=== PATIENT | female | born 1945 | race Caucasian/White ===

== ENCOUNTER 2021-06-12 10:21 | Outpatient (CLI) | payer MEDICARE, OTHER ==
[2021-06-12 12:33] LABS: Hemoglobin 12.3 g/dL (12.0-15.5); Mean Corpuscular HGB CONC 32.5 g/dL (32.0-36.0); Mean Corpuscular Hemoglobin 28.6 pg (27.0-33.0); Mean Corpuscular Volume 87.9 fl (81.6-98.3); Mean Platelet Volume 9.9 fl (7.4-10.4); Platelet Count 195 10x3/uL (150-450); White Blood Cell (WBC) Count 5.8 10x3/uL (3.5-10.5)
[2021-06-12 12:58] LABS: Anion Gap 14 mmol/L (10-20); BUN (Urea Nitrogen) 27 mg/dL (9.8-20.1); Calc. Creatinine Clearance 0 mL/min (70-130); Calcium 8.9 mg/dL (7.8-10.44); Carbon Dioxide 25 mmol/L (23-31); Chloride 103 mmol/L (98-107); Glucose 117 mg/dL (83-110); Potassium 4.6 mmol/L (3.5-5.1); Sodium 137 mmol/L (136-145)
[2021-06-12 23:52] LABS: SARS-CoV-2 PCR by NAA Not Detected (NotDetected)
== END 2021-06-12 10:22 | disposition home or self-care (01) ==
LOC: CSHLAB 10:21
PROVIDERS: ATTEND Orthopaedic Surgery
DX: Z01.818 Encounter for other preprocedural examination (principal); Z20.822 Contact with and (suspected) exposure to COVID-19; M19.011 Primary osteoarthritis, right shoulder
CPT/HCPCS: 80048; 85027; 93005; 93010; U0003; U0005

== ENCOUNTER 2022-08-18 13:37 | Outpatient (CLI) | payer MEDICARE, OTHER ==
[2022-08-18 15:03] LABS: Hemoglobin 11.8 g/dL (12.0-15.5); Mean Corpuscular HGB CONC 32.6 g/dL (32.0-36.0); Mean Corpuscular Hemoglobin 28.5 pg (27.0-33.0); Mean Corpuscular Volume 87.4 fl (81.6-98.3); Mean Platelet Volume 9.9 fl (7.4-10.4); Platelet Count 204 10x3/uL (150-450); RBC Distribution Width 13.5 % (11.5-14.5); Red Blood Cell (RBC) Count 4.14 10x6/uL (3.90-5.03); White Blood Cell (WBC) Count 6.3 10x3/uL (3.5-10.5)
[2022-08-18 15:20] LABS: Anion Gap 15 mmol/L (10-20); BUN (Urea Nitrogen) 32 mg/dL (9.8-20.1); Calc. Creatinine Clearance 0 mL/min (70-130); Calcium 9.5 mg/dL (7.8-10.44); Carbon Dioxide 23 mmol/L (23-31); Chloride 106 mmol/L (98-107); Estimated GFR 56; Glucose 99 mg/dL (83-110); Sodium 139 mmol/L (136-145)
== END 2022-08-18 13:38 | disposition home or self-care (01) ==
LOC: CSHLAB 13:37
PROVIDERS: ATTEND Orthopaedic Surgery
DX: Z01.818 Encounter for other preprocedural examination (principal); S83.011A Lateral subluxation of right patella, initial encounter; S83.015A Lateral dislocation of left patella, initial encounter
CPT/HCPCS: 80048; 85027; 93005; 93010

== ENCOUNTER 2022-08-20 05:57 | Day surgery (SDC) | payer MEDICARE, OTHER ==
[2022-08-18 14:28] VITALS: BMI 35.2
[2022-08-20] MEDS ORDERED: Bupivacaine HCl 0.5%/Epinephrine 1:200,000/PF 30 ml Vial ONE (06:56)
[2022-08-20] MEDS ORDERED: Acetaminophen 500 MG TAB ONE (07:18)
[2022-08-20] MEDS ORDERED: Acetaminophen 325 MG TAB ONE (07:18)
[2022-08-20] MEDS ORDERED: Lidocaine 1% PF 5 ML VIAL ONE (07:29)
[2022-08-20] MEDS ORDERED: PROPOFOL 20 ML ONE (07:29)
[2022-08-20] MEDS ORDERED: Fentanyl 100 MCG/2 ML VIAL ONE (07:29)
[2022-08-20] MEDS ORDERED: CEFAZOLIN 2 GM VIAL ONE (07:37)
[2022-08-20] MEDS ORDERED: Dexamethasone 20 MG/5 ML VIAL ONE (07:51)
[2022-08-20] MEDS ORDERED: ePHEDrine Sulfate 50 MG/10 ML VIAL ONE (08:14)
[2022-08-20] MEDS ORDERED: Ondansetron PF 4 MG/2 ML Vial ONE (08:44)
[2022-08-20] MEDS ORDERED: [UNRECOGNIZED DRUG - REMARK] PO PRN (09:28)
[2022-08-20] MEDS ORDERED: oxyCODONE 5 MG TAB PO PRN (09:30)
[2022-08-20] MEDS ORDERED: Promethazine HCl 25 MG/ML VIAL IM/IV PRN (09:30)
[2022-08-20] MEDS ORDERED: Ondansetron HCl/PF 4 MG/2 ML Vial IVP PRN (09:30)
[2022-08-20] MEDS ORDERED: oxyCODONE 5 MG TAB ONE (09:56)
== END 2022-08-20 10:45 | disposition home or self-care (01) ==
LOC: CSHSDC 05:57
PROVIDERS: ATTEND Orthopaedic Surgery
PROC: 0MNN0ZZ Release Right Knee Bursa and Ligament, Open Approach (ICD-10-PCS; principal; 2022-08-20)
PROC: 0SBC0ZZ Excision of Right Knee Joint, Open Approach (ICD-10-PCS; 2022-08-20)
DX: S83.011A Lateral subluxation of right patella, initial encounter (principal); M65.861 Other synovitis and tenosynovitis, right lower leg; M23.51 Chronic instability of knee, right knee; I25.10 Atherosclerotic heart disease of native coronary artery without angina pectoris; I10 Essential (primary) hypertension; G47.33 Obstructive sleep apnea (adult) (pediatric); Z88.8 Allergy status to other drugs, medicaments and biological substances; Z88.5 Allergy status to narcotic agent; Z96.653 Presence of artificial knee joint, bilateral; X58.XXXA Exposure to other specified factors, initial encounter
CPT/HCPCS: J1100; J2405; J2704; J3010

== ENCOUNTER 2024-12-10 19:36 | Observation (INO) | payer MEDICARE, OTHER ==
[~2024-12-10 19:36] MED LIST: Iopamidol 370 76% 100 ML VIAL ONE
[2024-12-10 20:01] LABS: #Basophils 0.04 10x3/uL (0.0-0.2); #Eosinophils Less than 0.03 10x3/uL (0.0-0.5); #Monocytes 0.72 10x3/uL (0.0-1.1); #Neutrophils 2.21 10x3/uL (1.5-8.4); %Basophils 1.0 % (0.0-2.0); %Eosinophils 0.2 % (0.0-6.0); %Lymphocytes 27.7 % (18.0-47.0); %Monocytes 17.3 % (0.0-10.0); %Neutrophils 53.3 % (40.0-75.0); Hematocrit 38.6 % (34.9-44.5); Hemoglobin 12.8 g/dL (12.0-15.5); Mean Corpuscular Hemoglobin 28.8 pg (27.0-33.0); Mean Corpuscular Volume 86.7 fL (81.6-98.3); Platelet Count 193 10x3/uL (150-450); Red Blood Cell (RBC) Count 4.45 10x6/uL (3.90-5.03); White Blood Cell (WBC) Count 4.15 10x3/uL (3.5-10.5)
[2024-12-10] MEDS ORDERED: Nitroglycerin 0.4 MG TAB 1 EACH ONE (20:19)
[2024-12-10 20:20] LABS: ALT (SGPT) 46 U/L (Less than 34); AST (SGOT) 62 U/L (11-34); Albumin 3.7 g/dL (3.1-4.5); Alkaline Phosphatase 57 U/L (40-110); Anion Gap 15 mmol/L (10-20); BUN (Urea Nitrogen) 36 mg/dL (9.8-20.1); Bilirubin, Total 0.4 mg/dL (0.3-1.2); Calc. Creatinine Clearance 0 mL/min (70-130); Calcium 9.1 mg/dL (7.8-10.44); Carbon Dioxide 22 mmol/L (23-31); Chloride 101 mmol/L (98-107); Globulin 3.5 g/dL (2.4-3.5); Glucose 103 mg/dL (83-110); Magnesium 2.5 mg/dL (1.6-2.6); Potassium 4.4 mmol/L (3.5-5.1); Sodium 134 mmol/L (136-145); Troponin I Less than 0.010 ng/mL (< 0.028)
[2024-12-10] MEDS ORDERED: Ketorolac Tromethamine 30 MG (1 mL) VIAL ONE (22:13)
[2024-12-10] MEDS ORDERED: Melatonin 3 MG TAB PO PRN (22:45)
[2024-12-10] MEDS ORDERED: Ondansetron PF 4 MG/2 ML Vial IVP PRN (22:45)
[2024-12-10] MEDS ORDERED: Nitroglycerin 0.4 MG TAB (25 Tab Bottle) SL PRN (22:49)
[2024-12-10 23:17] LABS: Glucose, Urine (Dipstick) >=1000 mg/dL (Negative); Leukocyte 500 (Negative); Protein, Urine (Dipstick) 15 mg/dl (Neg-Trace); Specific Gravity, Urine 1.005 (1.005-1.030)
[2024-12-10 23:27] LABS: Bacteria/HPF 1+ HPF (None Seen); CAUTI Indications for Culture Pelvic or flank pain; RBC/HPF 0-3 HPF (0-3); WBC/HPF 21-50 HPF (0-3)
[2024-12-10 23:28] LABS: Urine Culture Reflex Yes Yes
[2024-12-10 23:55] VITALS: BMI 34.2
[2024-12-11 00:02] LABS: Troponin I Less than 0.010 ng/mL (< 0.028)
[2024-12-11] MEDS: Aspirin 325 MG TAB PO SCH (01:09)
[2024-12-11] MEDS: Cephalexin 500 MG CAP PO SCH (01:09)
[2024-12-11] MEDS: Acetaminophen 325 MG TAB PO PRN (01:09)
[2024-12-11 02:51] LABS: Hematocrit 35.2 % (34.9-44.5); Hemoglobin 11.6 g/dL (12.0-15.5); MDiff Complete? YES; Mean Corpuscular Hemoglobin 28.7 pg (27.0-33.0); Mean Corpuscular Volume 87.1 fL (81.6-98.3); Platelet Adequacy Comment Appears Adequate; Platelet Count 163 10x3/uL (150-450); RBC Morphology Within Normal Limits; Red Blood Cell (RBC) Count 4.04 10x6/uL (3.90-5.03); White Blood Cell (WBC) Count 3.36 10x3/uL (3.5-10.5)
[2024-12-11 02:54] LABS: ALT (SGPT) 35 U/L (Less than 34); AST (SGOT) 41 U/L (11-34); Albumin 3.1 g/dL (3.1-4.5); Alkaline Phosphatase 46 U/L (40-110); Bilirubin, Direct 0.2 mg/dL (0.1-0.3); Bilirubin, Total 0.3 mg/dL (0.3-1.2)
[2024-12-11 02:56] LABS: Anion Gap 18 mmol/L (10-20); BUN (Urea Nitrogen) 37 mg/dL (9.8-20.1); Calc. Creatinine Clearance 35 mL/min (70-130); Calcium 8.3 mg/dL (7.8-10.44); Carbon Dioxide 18 mmol/L (23-31); Cardiac Risk 3.7 (Less than 4.5); Chloride 103 mmol/L (98-107); Cholesterol 153 mg/dl (< 200 Desired); Glucose 94 mg/dL (83-110); HDL Cholesterol 41 mg/dL (>60 Neg Risk); LDL Cholesterol, Calculated 84 mg/dL; Potassium 3.9 mmol/L (3.5-5.1); Sodium 135 mmol/L (136-145); Triglycerides 142 mg/dL (Less than 150)
[2024-12-11 03:00] LABS: Troponin I 0.011 ng/mL (< 0.028)
[2024-12-11] MEDS: Enoxaparin 30 MG (0.3 mL) SYRINGE SC SCH (09:23)
[2024-12-11] MEDS: Triamterene/Hydrochlorothiazide 37.5 mg/25 mg Tablet PO SCH (09:23)
[2024-12-11] MEDS: Aspirin Chewable 81 MG TAB PO SCH (09:24)
[2024-12-11] MEDS: Metoprolol Succinate XL 25 MG ER.TAB PO SCH (09:25)
[2024-12-11] MEDS: Pantoprazole 40 MG DR.TAB PO SCH (09:25)
[2024-12-11] MEDS: Famotidine 20 MG TAB PO SCH (09:25)
[2024-12-11] MEDS: Famotidine/PF 20 mg/2ml Vial SLOW IVP SCH (09:26)
[2024-12-11 12:41] VITALS: BP 121/50; TEMP 97.8
[2024-12-11] MEDS ORDERED: Rosuvastatin 20 MG TAB PO SCH (21:00)
[2024-12-11] MEDS ORDERED: Losartan 25 MG TAB PO SCH (21:00)
== END 2024-12-11 15:00 | disposition home or self-care (01) ==
LOC: CSHERS 19:36 → CSHTELE 22:45
PROVIDERS: ADMIT Family Medicine; ATTEND Internal Medicine
DX: R07.89 Other chest pain (principal); I25.10 Atherosclerotic heart disease of native coronary artery without angina pectoris; I48.0 Paroxysmal atrial fibrillation; I44.7 Left bundle-branch block, unspecified; I12.9 Hypertensive chronic kidney disease with stage 1 through stage 4 chronic kidney disease, or unspecified chronic kidney disease; N18.30 Chronic kidney disease, stage 3 unspecified; N17.9 Acute kidney failure, unspecified; N39.0 Urinary tract infection, site not specified; E78.5 Hyperlipidemia, unspecified; K55.069 Acute infarction of intestine, part and extent unspecified; Z96.611 Presence of right artificial shoulder joint; Z96.653 Presence of artificial knee joint, bilateral; Z95.2 Presence of prosthetic heart valve; Z95.5 Presence of coronary angioplasty implant and graft; Z90.710 Acquired absence of both cervix and uterus; Z88.5 Allergy status to narcotic agent; Z88.8 Allergy status to other drugs, medicaments and biological substances; Z79.82 Long term (current) use of aspirin; Z79.02 Long term (current) use of antithrombotics/antiplatelets; Z79.899 Other long term (current) drug therapy; W19.XXXA Unspecified fall, initial encounter
CPT/HCPCS: 71045; 71275; 74174; 80048; 80053; 80061; 80076; 81001; 83735; 84484 ×3; 85025 ×2; 87077; 87086; 93005; 96372; 96374; 99285; G0378 ×2; J1650; J1885; J7030; Q9967; 36415; 87186; 93010